=== PATIENT | female | born 1955 | race Caucasian/White ===

== ENCOUNTER 2019-03-23 12:26 | Emergency (ER) | payer OTHER, MEDICARE ==
[2019-03-23 13:25] VITALS: BP 87/57
--- NOTE | 2019-03-23 13:48 | UC ---
Truncal Trauma HPI - HPI Summary HPI Summary: Pt presents with c/o right lateral, rib pain. Pt was working in her garden 4 days ago and leaned over and felt a sharp, painful "pop" on right sight of trunk /ribs and now has pain with cough, and deep breathing. Pt has hx of back pain and surgery. Was wearing a back brace while doing gardening. - History Of Current Complaint Chief Complaint: UCGeneralIllness Stated Complaint: RT SIDE RIB PAIN Time Seen by Provider: 03/23/19 13:23 Hx Obtained From: Patient ?: No Onset/Duration: Sudden Onset, Lasting Days Onset Of Pain: Immediate Severity Initially: Moderate Severity Currently: Moderate Pain Intensity: 10 Mechanism Of Injury: Other - movement Aggravating Factor(s): Deep Breathing, Cough Alleviating factor(s): Rest Associated Signs And Symptoms: Positive: Negative - Allergies/Home Medications Allergies/Adverse Reactions: Allergies Allergy/AdvReac Type Severity Reaction Status Date / Time No Known Allergies Allergy Verified 03/23/19 13:25 Home Medications: Home Medications Esomeprazole Magnesium [Nexium 24Hr] 80 mg PO DAILY 03/23/19 [History Confirmed 03/23/19] Folic Acid TAB* [Folvite TAB*] 1 mg PO DAILY 03/23/19 [History Confirmed ] Lisinopril TAB* [Prinivil TAB 10 MG*] 40 mg PO DAILY 03/23/19 [History Confirmed 03/23/19] Multivitamin [Vitamins For Hair] 1 each PO DAILY 03/23/19 [History Confirmed ] Primidone TAB(*) [Mysoline TAB(*)] 150 mg PO BID 03/23/19 [History Confirmed ] Simvastatin [Zocor] 40 mg PO DAILY 03/23/19 [History Confirmed 03/23/19] PMH/Surg Hx/FS Hx/Imm Hx Previously Healthy: Yes Cardiovascular History: Cardiac Disease - Surgical History Surgical History: Yes Surgery Procedure, Year, and Place: APPENDECTOMY, GASTROPASTY TWICE. OVARIES REMOVED. Breast surgery. back and shoulder surgery - Family History Known Family History: Positive: Cardiac Disease - Social History Occupation: Retired Lives: With Family Alcohol Use: None Substance Use Type: None Smoking Status (MU): Never Smoked Tobacco Have You Smoked in the Last Year: No - Immunization History Vaccination Up to Date: Yes Review of Systems All Other Systems Reviewed And Are Negative: Yes Constitutional: Positive: Negative Skin: Positive: Negative Eyes: Positive: Negative ENT: Positive: Negative Respiratory: Positive: Negative Cardiovascular: Positive: Negative Gastrointestinal: Positive: Negative Genitourinary: Positive: Negative Motor: Positive: Negative Neurovascular: Positive: Negative Musculoskeletal: Positive: Arthralgia - right yamel erib/trunk pain, Myalgia - right side rib and trunk pain Neurological: Positive: Negative Psychological: Positive: Negative Is Patient Immunocompromised?: No Physical Exam Triage Information Reviewed: Yes Appearance: Well-Appearing Vital Signs: Initial Vital Signs Temp 98.3 F 03/23/19 13:19 Pulse 50 03/23/19 13:19 Resp 16 03/23/19 13:19 BP 87/57 03/23/19 13:19 Pulse Ox 97 03/23/19 13:19 Vital Signs Reviewed: Yes Eye Exam: Normal ENT: Positive: Hearing grossly normal Dental Exam: Normal Neck exam: Normal Respiratory Exam: Normal Respiratory: Positive: Normal breath sounds Cardiovascular Exam: Normal Abdominal Exam: Normal Musculoskeletal: Positive: No Edema, Other: - right lateral rib/trunk pain ~ ribs 8-9 Neurological Exam: Normal Psychological Exam: Normal Skin Exam: Normal Diagnostics - Radiology No standard instances Radiology Interpretation Completed By: Radiologist - IMPRESSION: No fracture of the right ribs is noted. No pneumothorax is noted. Truncal Trauma Course/Dx - Course Course Of Treatment: At time of discharge pt requested a muscle relaxer. - Differential Dx/Diagnosis Differential Diagnosis/HQI/PQRI: Rib Fracture, Other - hernia Provider Diagnosis: Rib pain on right side Discharge - Sign-Out/Discharge Documenting (check all that apply): Patient Departure All imaging exams completed and their final reports reviewed: Yes - Discharge Plan Condition: Stable Disposition: HOME Prescriptions: Cyclobenzaprine TAB* [Flexeril 10 MG TAB*] 10 mg PO Q8H PRN #6 tab PRN Reason: Pain Patient Education Materials: Rib Contusion (ED) Referrals: Alyson Kline MD [Primary Care Provider] - If Needed - Billing Disposition and Condition Condition: STABLE Disposition: Home
== END 2019-03-23 14:40 | disposition home or self-care (01) ==
LOC: UCCORT 12:26
DX: R07.81 Pleurodynia (principal); X50.0XXA Overexertion from strenuous movement or load, initial encounter; Y93.H2 Activity, gardening and landscaping; Y92.007 Garden or yard of unspecified non-institutional (private) residence as the place of occurrence of the external cause
CPT/HCPCS: 99202; G0463